=== PATIENT | female | born 1980 ===

== ENCOUNTER 2016-10-15 22:54 | Inpatient (IN) | payer SELFPAY ==
[2016-10-15 22:54] VITALS: BMI 37.6
[2016-10-15] MEDS ORDERED: Magnesium Citrate Oral SOL (300 ml) PO ONE (23:55)
[2016-10-15] MEDS ORDERED: Sodium Chloride 0.9% 1,000 ML IV STA (23:55)
--- NOTE | 2016-10-15 23:56 | ED PDOC ---
HPI: Abdomen Time Seen by Provider: 10/15/16 23:51 Chief Complaint (Nursing): Abdominal Pain Chief Complaint (Provider): Constipation History Per: Patient Additional Complaint(s): 36 yo female, PMH of Lupus and Autoimmune Hepatitis, presents to ED with complaints of abdominal pain and distention, constipation x 5 days now and 2 episodes of non bloody, non billious vomiting as of today. Pt reports that she tried using OTC Laxatives at home without any relief. Past Medical History Reviewed: Nursing Documentation, Vital Signs Vital Signs: Last Vital Signs Temp 98.1 F 10/16/16 04:52 Pulse 82 10/16/16 04:52 Resp 16 10/16/16 04:52 BP 130/70 10/16/16 04:52 Pulse Ox 100 10/16/16 04:52 - Medical History PMH: Anemia - Surgical History Surgical History: No Surg Hx - Family History Family History: States: Unknown Family Hx - Living Arrangements Living Arrangements: With Family - Social History Current smoker - smoking cessation education provided: No Alcohol: None Drugs: Denies - Home Medications Home Medications: Ambulatory Orders Medication Instructions Recorded Hydroxychloroquine Sulfate 200 mg PO BID 10/16/16 [Plaquenil] methylPREDNISolone [Medrol] 4 mg PO DAILY 10/16/16 - Allergies Allergies/Adverse Reactions: Allergies Allergy/AdvReac Type Severity Reaction Status Date / Time No Known Allergies Allergy Verified 06/02/16 03:42 Review of Systems ROS Statement: Except As Marked, All Systems Reviewed And Found Negative Gastrointestinal: Positive for: Vomiting, Abdominal Pain, Constipation Physical Exam - Reviewed Nursing Documentation Reviewed: Yes Vital Signs Reviewed: Yes - Physical Exam Appears: Positive for: Non-toxic, No Acute Distress, Uncomfortable Head Exam: Positive for: ATRAUMATIC, NORMAL INSPECTION, NORMOCEPHALIC Skin: Positive for: Normal Color, Warm, DRY Eye Exam: Positive for: EOMI, Normal appearance, PERRL ENT: Positive for: Normal ENT Inspection Neck: Positive for: Normal, Painless ROM Cardiovascular/Chest: Positive for: Regular Rate, Rhythm Respiratory: Positive for: CNT, Normal Breath Sounds Gastrointestinal/Abdominal: Positive for: Bowel Sounds, Soft, Tenderness, Distended Back: Positive for: Normal Inspection Extremity: Positive for: Normal ROM Neurologic/Psych: Positive for: Alert, Oriented - Laboratory Results Result Diagrams: 10/15/16 23:59 10/15/16 23:59 - ECG O2 Sat by Pulse Oximetry: 98 Medical Decision Making Medical Decision Making: IV access established and treatment initiated with IVF< Mag Citrate, Fleet Enema and Zofran on er-eval, pt vomited Mag up. Declining enema Pt reports pain remains severe. Medicated with Morphine IV CT IMPRESSION: Large intestine packed with stool, upper normal in caliber, with suspicion for a focal stricture in the pelvis which may be neoplastic or related to other pathology, with chronic inflammatory bowel disease to be excluded.. Large hiatus hernia with a large amount of debris. Ascites favored to be related to the bowel pathology although that is not definitive on this study. No evidence of acute small bowel obstruction. Right hydronephrosis with question punctate right UVJ stone. As is true for all female patients of reproductive age, correlation with beta hCG and consideration of gynecologic causes of symptoms is recommended. Case discussed with ED MD, Dr. Kirby, who agreed with admission at this time. Family Practice resident contacted and case discussed. Arrangements made for admission Disposition - Clinical Impression Clinical Impression: Abdominal pain, Constipation - Patient ED Disposition Is Patient to be Admitted: Yes - Disposition Disposition Time: 05:01 Condition: STABLE
[2016-10-16] MEDS ORDERED: Magnesium Citrate Oral SOL (300 ml) ONE (00:13)
[2016-10-16 00:21] LABS: BASO # 0.2 K/uL (0.0-0.2); BASO % 1.3 % (0.0-2.0); EOS % 0.2 % (0.0-4.0); HEMOGLOBIN 11.2 g/dL (12.0-16.0); LYMPH # 1.6 K/uL (1.0-4.3); LYMPH % 11.8 % (20.0-40.0); MEAN CELL VOLUME 87.9 fl (81.0-99.0); MONO # 0.6 K/uL (0.0-0.8); MONO % 4.7 % (0.0-10.0); NEUT # 10.8 K/uL (1.8-7.0); RBC 3.85 Mil/uL (3.80-5.20); RED CELL DISTRIBUTION WIDTH 13.8 % (11.5-14.5); WHITE BLOOD COUNT 13.2 K/uL (4.8-10.8)
[2016-10-16 00:35] LABS: ALB/GLOB RATIO 0.9 (1.0-2.1); ALBUMIN 4.3 g/dL (3.5-5.0); ALT/SGPT 36 U/L (9-52); AST/SGOT 37 U/L (14-36); BLOOD UREA NITROGEN 14 mg/dl (7-17); CALCIUM 9.6 mg/dL (8.4-10.2); GFR AFRICAN-AMERICAN > 60; GFR NON-AFRICAN AMERICAN > 60
[2016-10-16 00:39] LABS: SQUAMOUS EPITHIAL 5 /hpf (0-5); URINE BACTERIA RARE (<OCC); URINE BILIRUBIN SMALL (NEGATIVE); URINE BLOOD SMALL (NEGATIVE); URINE CLARITY SLIGHTY-CLOUDY (Clear); URINE COLOR AMBER (YELLOW); URINE GLUCOSE (UA) NEG (Normal); URINE LEUKOCYTE ESTERASE NEG Leu/uL (Negative); URINE NITRATE NEGATIVE (NEGATIVE); URINE PROTEIN 30 mg/dL (NEGATIVE)
[2016-10-16] MEDS ORDERED: Sodium Chloride 0.9% 50 ML IV ONE (03:10)
[2016-10-16] MEDS ORDERED: Iohexol 300 100 ML IJ ONE (03:10)
--- NOTE | 2016-10-16 04:28 | CT ---
EXAM: CT Abdomen and Pelvis With Intravenous Contrast CLINICAL HISTORY: 36 years old, female; Pain; Abdominal pain; Generalized; Additional info: R/O sbo TECHNIQUE: Axial computed tomography images of the abdomen and pelvis with intravenous contrast. This CT exam was performed using one or more of the following dose reduction techniques: automated exposure control, adjustment of the mA and/or kV according to patient size, and/or use of iterative reconstruction technique. Coronal and sagittal reformatted images were created and reviewed. CONTRAST: 95 mL of [id number] administered intravenously. EXAM DATE/TIME: Exam ordered 10/16/2016 12:42 AM COMPARISON: US - IR NEEDLE BX LIVER PERC 06/12/2015 10:56:50 AM FINDINGS: Lower thorax: There is a large hiatus hernia containing a large amount of debris above the diaphragm. Lung bases with bilateral atelectatic and fibrotic changes. ABDOMEN: Liver: Unremarkable. No mass. Gallbladder and bile ducts: Unremarkable. No calcified stones. No ductal dilation. Pancreas: Unremarkable. No mass. No ductal dilation. Spleen: Unremarkable. No splenomegaly. Adrenals: Unremarkable. No mass. Kidneys and ureters: Kidneys mild prominence of the bilateral collecting systems, possible mild periureteral stranding on the right which could be a sign of recent passage of a stone, series 3 image 161 cannot exclude a punctate calculus at the right UVJ. Stomach and bowel: There is fluid content in the cecum with a large intestine otherwise essentially packed with fecal material, noting focal narrowing in the pelvis as seen series 601 coronal image 52 with dilatation both proximal and distal to that level and with investigation for neoplasm or other cause of stricture recommended. There is fluid content in normal caliber small bowel with no findings to suggest small bowel obstruction, noting that fluid content is nonspecific but sometimes associated with enteritis. Appendix: No findings to suggest acute appendicitis. PELVIS: Bladder: Unremarkable. No mass. Reproductive: Unremarkable as visualized. ABDOMEN and PELVIS: Intraperitoneal space: There is a small amount of pelvic ascites favored to be related to the bowel findings. No free air. Bones/joints: No acute fracture. No dislocation. Soft tissues: Unremarkable. Vasculature: Incidental retroaortic left renal vein. No abdominal aortic aneurysm. Lymph nodes: Upper normal bilateral external iliac nodes, left para-aortic nodes. Other findings: No previous CTs for comparison. IMPRESSION: Large intestine packed with stool, upper normal in caliber, with suspicion for a focal stricture in the pelvis which may be neoplastic or related to other pathology, with chronic inflammatory bowel disease to be excluded.. Large hiatus hernia with a large amount of debris. Ascites favored to be related to the bowel pathology although that is not definitive on this study. No evidence of acute small bowel obstruction. Right hydronephrosis with question punctate right UVJ stone. As is true for all female patients of reproductive age, correlation with beta hCG and consideration of gynecologic causes of symptoms is recommended.
--- NOTE | 2016-10-16 05:40 | CP.PCM.HP ---
History of Present Illness - History of Present Illness History of Present Illness: 35 yo F w PMHx of Lupus is admitted to [facility] for nausea, vomiting x3 overnight, and significant abdominal pain associated with constipation for one week. She describes the pain as intense cramping located more on the Left side of her abdomen, but can also extend to epigastric region. When she is able to pass stool, she states it is very firm, but of normal color and without any blood. Pt states her chronic constipation began roughly three months ago, for which she was told by GI to change her diet to include more fiberous food and shed excess weight. Her diet now consists of whole grains, fruits, and vegetables, in addition to taking benefiber. Otherwise, pt denies fevers/chills, diarrhea, chest pain, palpitations, SOB, dyspnea, cough, hematuria, dysuria, or other myalgias. 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 FHx: DM, Arthritis SHx: socially minimal etoh, denies cigarettes since Lupus Dx, denies illicit drugs ED Course: -CBC -CMP -Upreg: negative -NS 1L 125mL/hr -XR Abd -Mag Citrate; pt vomited -Reglan -Zofran -Declined enema Present on Admission - Present on Admission Any Indicators Present on Admission: No History of DVT/PE: No History of Uncontrolled Diabetes: No Urinary Catheter: No Decubitus Ulcer Present: No Review of Systems - Review of Systems All systems: reviewed and no additional remarkable complaints except (see HPI) Past Patient History - Past Medical History & Family History Past Medical History?: Yes - Past Social History Alcohol: None Drugs: Denies - NEUROLOGICAL Hx Vertigo: Yes (8 years ago) - ENDOCRINE/METABOLIC Hx Systemic Lupus Erythematosus: Yes - HEMATOLOGICAL/ONCOLOGICAL Hx Anemia: Yes - PSYCHIATRIC Hx Substance Use: No - ANESTHESIA Hx Anesthesia: No Hx Anesthesia Reactions: No Hx Malignant Hyperthermia: No Meds Allergies/Adverse Reactions: Allergies Allergy/AdvReac Type Severity Reaction Status Date / Time No Known Allergies Allergy Verified 06/02/16 03:42 Physical Exam - Constitutional Appears: In Acute Distress, Older Than Stated Age - Head Exam Head Exam: ATRAUMATIC, NORMOCEPHALIC - Eye Exam Eye Exam: EOMI Pupil Exam: PERRL - ENT Exam ENT Exam: Mucous Membranes Dry - Neck Exam Neck exam: Positive for: Full Rom - Respiratory Exam Respiratory Exam: Clear to Auscultation Bilateral, NORMAL BREATHING PATTERN. absent: Wheezes - Cardiovascular Exam Cardiovascular Exam: REGULAR RHYTHM, +S1, +S2 - GI/Abdominal Exam GI & Abdominal Exam: Distended, Firm, Guarding (voluntarily), Normal Bowel Sounds, Tenderness (very tender RLQ & RUQ, moderately tender epigastric) - Extremities Exam Extremities exam: Negative for: calf tenderness, pedal edema - Back Exam Back exam: NORMAL INSPECTION. absent: CVA tenderness (L), CVA tenderness (R) - Neurological Exam Neurological exam: Alert, CN II-XII Intact, Oriented x3 - Psychiatric Exam Psychiatric exam: Normal Affect, Normal Mood - Skin Skin Exam: Dry, Intact, Warm Additional comments: devi hue Results - Vital Signs Recent Vital Signs: Last Vital Signs Temp 98.1 F 10/16/16 04:52 Pulse 82 10/16/16 04:52 Resp 16 10/16/16 04:52 BP 130/70 10/16/16 04:52 Pulse Ox 98 10/16/16 05:01 - Labs Result Diagrams: 10/15/16 23:59 10/15/16 23:59 Labs: Laboratory Results - last 24 hr 10/15/16 10/15/16 10/16/16 23:59 23:59 00:21 WBC 13.2 H D RBC 3.85 Hgb 11.2 L Hct 33.9 L MCV 87.9 MCH 29.0 MCHC 33.0 RDW 13.8 Plt Count 319 MPV 9.0 Neut % (Auto) 82.0 H Lymph % (Auto) 11.8 L Collin % (Auto) 4.7 Eos % (Auto) 0.2 Baso % (Auto) 1.3 Neut # 10.8 H Lymph # 1.6 Collin # 0.6 Eos # 0.0 Baso # 0.2 Sodium 140 Potassium 4.4 Chloride 107 Carbon Dioxide 24 Anion Gap 14 BUN 14 Creatinine 0.6 L Est GFR ( Amer) > 60 Est GFR (Non-Af Amer) > 60 Random Glucose 110 H Calcium 9.6 Total Bilirubin 0.3 AST 37 H ALT 36 Alkaline Phosphatase 72 Total Protein 9.0 H Albumin 4.3 Globulin 4.7 H Albumin/Globulin Ratio 0.9 L Urine Color Marlene Urine Clarity Slighty-cloudy Urine pH 5.0 Ur Specific Hilham 1.032 H Urine Protein 30 Urine Glucose (UA) Neg Urine Ketones 20 Urine Blood Small Urine Nitrate Negative Urine Bilirubin Small Urine Urobilinogen 4.0 H Ur Leukocyte Esterase Neg Urine RBC (Auto) 3 Urine Microscopic WBC 2 Ur Squamous Epith Cells 5 Urine Bacteria Rare Assessment & Plan - Assessment and Plan (Free Text) Plan: 35 yo F w PMHx of Lupus is admitted to [facility] for nausea, vomiting x3 overnight, and significant abdominal pain associated with constipation for one week 1) Abdominal Pain w week-long constipation -Has been unable to move her bowels for previous week -Progressively worsening for previous few months -WBC 13.2; likely due to daily Medrol administration -AST/ALT: 37/36 -CT A/P: ---Large intestine packed with stool, upper normal in caliber, with suspicion for a focal stricture in the pelvis which may be neoplastic or related to other pathology, with chronic inflammatory bowel disease to be excluded. ---Large hiatus hernia with a large amount of debris. Ascites favored to be related to the bowel pathology although that is not definitive on this study. ---No evidence of acute small bowel obstruction. ---Right hydronephrosis with question punctate right UVJ stone. -NPO -Zofran 4mg IVP Q4H PRN -D5 1/2NS @ 150mL/hr -f/u GI Consult 2) Lupus -Plaquenil 200mg BID -Medrol 4mg Daily 3) Right Hydronephrosis -As seen on CT -Zero CVA tenderness -Elevated WBC likely due to daily Medrol administration -Consider Nephro Consult 4) DVT Prophylaxis -SCDs for now -Lovenox 40mg SC HS, unless necessary to be stopped due to intervention
[2016-10-16] MEDS: Dextrose 5%/0.45% NS 1,000 ML IV SCH ×4 (09:22→20:18)
[2016-10-16] MEDS: Morphine 4 MG/ML VIAL IVP PRN ×2 (11:35→18:13)
[2016-10-16] MEDS ORDERED: Chlorhexidine Gluconate 1 APPL/PKT TP ONE (13:50)
--- NOTE | 2016-10-16 14:09 | RAD ---
HISTORY: constipation COMPARISON: No prior. FINDINGS: BOWEL: Current study reveals a very large amount of stool throughout the colon consistent with fecal retention/ constipation and/or early fecal impaction. No evidence of acute mechanical bowel obstruction BONES: Normal. OTHER FINDINGS: None. IMPRESSION: Findings consistent with significant fecal retention/ constipation and/or early fecal impaction. No evidence of acute mechanical bowel obstruction
--- NOTE | 2016-10-16 14:45 | CP.PCM.CON ---
History of Present Illness - History of Present Illness History of Present Illness: 36 y.o. female comes to the hospital c/o constipation for the last 1 week. Patient states that prior to the last 3 months she never had any constipation but now it is getting worse. Patient went to her PMD and was prescribed laxatives with some relief. States that occasionally gets some abdominal discomforts. No nausea or vomiting, no fever or chills. No urinary symptoms. Never had a colonoscopy. Review of Systems - Constitutional Constitutional: As Per HPI - EENT Eyes: Other (unremarkable) Ears: Other (unremarkable) Nose/Mouth/Throat: Other (unremarkable) - Breasts Breasts: Other (unremarkable) - Cardiovascular Cardiovascular: Other (unremarkable) - Respiratory Respiratory: Other (unremarkable) - Gastrointestinal Gastrointestinal: As Per HPI - Genitourinary Genitourinary: As Per HPI - Menstruation Menstruation: Currently Menstual - Musculoskeletal Musculoskeletal: Other (unremarkable) - Integumentary Integumentary: Other (unremarkable) - Neurological Neurological: Other (unremarkable) - Psychiatric Psychiatric: Other (unremarkable) - Endocrine Endocrine: Other (unremarkable) - Hematologic/Lymphatic Hematologic: Other (unremarkable) Past Patient History - Past Medical History & Family History Past Medical History?: Yes - Past Social History Smoking Status: Former Smoker - NEUROLOGICAL Hx Vertigo: Yes (8 years ago) - ENDOCRINE/METABOLIC Hx Systemic Lupus Erythematosus: Yes - HEMATOLOGICAL/ONCOLOGICAL Hx Anemia: Yes - MUSCULOSKELETAL/RHEUMATOLOGICAL Hx Falls: No - PSYCHIATRIC Hx Substance Use: No - SURGICAL HISTORY Hx Surgeries: No - ANESTHESIA Hx Anesthesia: No Hx Anesthesia Reactions: No Hx Malignant Hyperthermia: No Meds Allergies/Adverse Reactions: Allergies Allergy/AdvReac Type Severity Reaction Status Date / Time No Known Allergies Allergy Verified 06/02/16 03:42 - Medications Medications: Current Medications Enoxaparin Sodium (Lovenox) 40 mg SC HS ROSIO PRN Reason: Protocol Famotidine (Pepcid) 20 mg IVP Q12 [facility] Last Admin: 10/16/16 09:26 Dose: 20 mg Hydroxychloroquine Sulfate (Plaquenil) 200 mg PO BID [facility] Last Admin: 10/16/16 09:08 Dose: 200 mg Dextrose/Sodium Chloride (Dextrose 5%/0.45% Ns 1000 Ml) 1,000 mls @ 150 mls/hr IV .Q6H40M [facility] Stop: 10/17/16 05:56 Last Admin: 10/16/16 14:11 Dose: Not Given Methylprednisolone (Medrol) 4 mg PO DAILY [facility] Last Admin: 10/16/16 09:27 Dose: 4 mg Morphine Sulfate (Morphine) 2 mg IVP Q4 PRN PRN Reason: Pain, moderate (4-7) Last Admin: 10/16/16 11:35 Dose: 2 mg Ondansetron HCl (Zofran Inj) 4 mg IVP Q6 PRN PRN Reason: Nausea/Vomiting Last Admin: 10/16/16 09:07 Dose: 4 mg Physical Exam - Constitutional Appears: Well, Non-toxic, No Acute Distress - Head Exam Head Exam: ATRAUMATIC, NORMAL INSPECTION, NORMOCEPHALIC - Eye Exam Eye Exam: EOMI, Normal appearance, PERRL Pupil Exam: NORMAL ACCOMODATION, PERRL - ENT Exam ENT Exam: Mucous Membranes Moist, Normal Exam - Neck Exam Neck exam: Positive for: Full Rom, Normal Inspection - Respiratory Exam Respiratory Exam: Clear to Auscultation Bilateral, NORMAL BREATHING PATTERN - Cardiovascular Exam Cardiovascular Exam: REGULAR RHYTHM, +S1, +S2 - GI/Abdominal Exam GI & Abdominal Exam: Normal Bowel Sounds, Soft Additional comments: mildly tender to palpation, Very mildly distended, no rebound, no guarding - Rectal Exam Additional comments: good spincter tone, some brown stool in the vault - Extremities Exam Extremities exam: Positive for: full ROM, normal inspection - Back Exam Back exam: NORMAL INSPECTION - Neurological Exam Neurological exam: Alert, CN II-XII Intact, Oriented x3 - Psychiatric Exam Psychiatric exam: Normal Affect, Normal Mood - Skin Skin Exam: Dry, Intact, Normal Color, Warm Results - Vital Signs Recent Vital Signs: Last Vital Signs Temp 98.2 F 10/16/16 07:31 Pulse 70 10/16/16 07:31 Resp 18 10/16/16 07:31 BP 108/68 10/16/16 07:31 Pulse Ox 98 10/16/16 07:31 - Labs Result Diagrams: 10/15/16 23:59 10/15/16 23:59 - Imaging and Cardiology CT scan - abdomen Status: Image reviewed by me, Report reviewed by me Assessment & Plan - Assessment and Plan (Free Text) Assessment: 36 y.o. female with constipation and possible stricture in the colon at the level of the pelvis on the CT scan Plan: - Keep NPO - IV fluids - GI consultation for colonoscopy - Repeat labs in am - No general surgery intervention at present time - Will follow
[2016-10-16] MEDS: Enoxaparin 40 mg Syringe SC SCH (22:10)
--- NOTE | 2016-10-16 23:11 | CP.PCM.CON ---
History of Present Illness - History of Present Illness History of Present Illness: 33 yo female admitted with severe right sided abdominal pain since Tuesday. Was much worst today and came to ER. No vomiting or diarrhea. No previous episodes Past Patient History - Past Medical History & Family History Past Medical History?: Yes - Past Social History Smoking Status: Former Smoker - NEUROLOGICAL Hx Vertigo: Yes (8 years ago) - ENDOCRINE/METABOLIC Hx Systemic Lupus Erythematosus: Yes - HEMATOLOGICAL/ONCOLOGICAL Hx Anemia: Yes - MUSCULOSKELETAL/RHEUMATOLOGICAL Hx Falls: No - PSYCHIATRIC Hx Substance Use: No - SURGICAL HISTORY Hx Surgeries: No - ANESTHESIA Hx Anesthesia: No Hx Anesthesia Reactions: No Hx Malignant Hyperthermia: No Meds Allergies/Adverse Reactions: Allergies Allergy/AdvReac Type Severity Reaction Status Date / Time No Known Allergies Allergy Verified 06/02/16 03:42 - Medications Medications: Current Medications Enoxaparin Sodium (Lovenox) 40 mg SC HS [facility] PRN Reason: Protocol Last Admin: 10/16/16 22:10 Dose: 40 mg Famotidine (Pepcid) 20 mg IVP Q12 [facility] Last Admin: 10/16/16 20:18 Dose: 20 mg Hydroxychloroquine Sulfate (Plaquenil) 200 mg PO BID [facility] Last Admin: 10/16/16 18:09 Dose: 200 mg Dextrose/Sodium Chloride (Dextrose 5%/0.45% Ns 1000 Ml) 1,000 mls @ 150 mls/hr IV .Q6H40M [facility] Stop: 10/17/16 05:56 Last Admin: 10/16/16 20:18 Dose: 150 mls/hr Methylprednisolone (Medrol) 4 mg PO DAILY [facility] Last Admin: 10/16/16 09:27 Dose: 4 mg Mineral Oil (Fleet Mineral Oil Enema) 135 ml MA ONCE ONE Stop: 10/16/16 23:41 Morphine Sulfate (Morphine) 2 mg IVP Q4 PRN PRN Reason: Pain, moderate (4-7) Last Admin: 10/16/16 18:13 Dose: 2 mg Ondansetron HCl (Zofran Inj) 4 mg IVP Q6 PRN PRN Reason: Nausea/Vomiting Last Admin: 10/16/16 09:07 Dose: 4 mg Results - Vital Signs Recent Vital Signs: Last Vital Signs Temp 99 F 10/16/16 17:02 Pulse 87 10/16/16 17:02 Resp 20 10/16/16 17:02 BP 103/64 10/16/16 17:02 Pulse Ox 99 10/16/16 17:02 - Labs Result Diagrams: 10/15/16 23:59 10/15/16 23:59
--- NOTE | 2016-10-16 23:23 | CP.PCM.CON ---
History of Present Illness - History of Present Illness History of Present Illness: 36 yo female with h/o lupus presenting with nausea, vomiting and aaaaaabdominal distention> She mack been having difficulty passing stool and when she does it is very hard. Her constipation has been present for 3 months. Review of Systems - Constitutional Constitutional: absent: Chills - EENT Eyes: absent: Blurred Vision Ears: absent: Decreased Hearing Nose/Mouth/Throat: absent: Epistaxis - Cardiovascular Cardiovascular: absent: Chest Pain - Respiratory Respiratory: absent: Cough - Gastrointestinal Gastrointestinal: As Per HPI Past Patient History - Past Medical History & Family History Past Medical History?: Yes - Past Social History Smoking Status: Former Smoker - NEUROLOGICAL Hx Vertigo: Yes (8 years ago) - ENDOCRINE/METABOLIC Hx Systemic Lupus Erythematosus: Yes - HEMATOLOGICAL/ONCOLOGICAL Hx Anemia: Yes - MUSCULOSKELETAL/RHEUMATOLOGICAL Hx Falls: No - PSYCHIATRIC Hx Substance Use: No - SURGICAL HISTORY Hx Surgeries: No - ANESTHESIA Hx Anesthesia: No Hx Anesthesia Reactions: No Hx Malignant Hyperthermia: No Meds Allergies/Adverse Reactions: Allergies Allergy/AdvReac Type Severity Reaction Status Date / Time No Known Allergies Allergy Verified 06/02/16 03:42 - Medications Medications: Current Medications Enoxaparin Sodium (Lovenox) 40 mg SC HS ROSIO PRN Reason: Protocol Last Admin: 10/16/16 22:10 Dose: 40 mg Famotidine (Pepcid) 20 mg IVP Q12 [facility] Last Admin: 10/16/16 20:18 Dose: 20 mg Hydroxychloroquine Sulfate (Plaquenil) 200 mg PO BID [facility] Last Admin: 10/16/16 18:09 Dose: 200 mg Dextrose/Sodium Chloride (Dextrose 5%/0.45% Ns 1000 Ml) 1,000 mls @ 150 mls/hr IV .Q6H40M [facility] Stop: 10/17/16 05:56 Last Admin: 10/16/16 20:18 Dose: 150 mls/hr Methylprednisolone (Medrol) 4 mg PO DAILY [facility] Last Admin: 10/16/16 09:27 Dose: 4 mg Mineral Oil (Fleet Mineral Oil Enema) 135 ml MO ONCE ONE Stop: 10/16/16 23:41 Morphine Sulfate (Morphine) 2 mg IVP Q4 PRN PRN Reason: Pain, moderate (4-7) Last Admin: 10/16/16 18:13 Dose: 2 mg Ondansetron HCl (Zofran Inj) 4 mg IVP Q6 PRN PRN Reason: Nausea/Vomiting Last Admin: 10/16/16 09:07 Dose: 4 mg Physical Exam - Head Exam Head Exam: ATRAUMATIC - Eye Exam Eye Exam: Normal appearance - ENT Exam ENT Exam: Mucous Membranes Moist - Respiratory Exam Respiratory Exam: Clear to Auscultation Bilateral - Cardiovascular Exam Cardiovascular Exam: REGULAR RHYTHM, +S1, +S2 - GI/Abdominal Exam GI & Abdominal Exam: Distended, Firm, Normal Bowel Sounds Results - Vital Signs Recent Vital Signs: Last Vital Signs Temp 99 F 10/16/16 17:02 Pulse 87 10/16/16 17:02 Resp 20 10/16/16 17:02 BP 103/64 10/16/16 17:02 Pulse Ox 99 10/16/16 17:02 - Labs Result Diagrams: 10/15/16 23:59 10/15/16 23:59 - Imaging and Cardiology CT scan - abdomen Status: Report reviewed by me Assessment & Plan (1) Abdominal pain Assessment and Plan: Colon is packed with stool and there is suspicion for focal stricture in pelvis. Will give suppository and enema tonight. If distention persists possibly a Barium enema on Tuesday. Status: Acute
[2016-10-16] MEDS ORDERED: Mineral Oil Enema 135 ml PR ONE (23:40)
[2016-10-17] MEDS: Dextrose 5%/0.45% NS 1,000 ML IV SCH (02:01)
--- NOTE | 2016-10-17 10:09 | CP.PCM.PN ---
Subjective - Date & Time of Evaluation Date of Evaluation: 10/17/16 Time of Evaluation: 10:07 - Subjective Subjective: Still distended Small bowel movement yesterday Objective - Vital Signs/Intake and Output Vital Signs (last 24 hours): Temp Pulse Resp BP Pulse Ox 98.3 F 102 H 18 102/66 95 10/17/16 07:47 10/17/16 07:47 10/17/16 07:47 10/17/16 07:47 10/17/16 07:47 - Medications Medications: Current Medications Enoxaparin Sodium (Lovenox) 40 mg SC HS [facility] PRN Reason: Protocol Last Admin: 10/16/16 22:10 Dose: 40 mg Famotidine (Pepcid) 20 mg IVP Q12 [facility] Last Admin: 10/16/16 20:18 Dose: 20 mg Hydroxychloroquine Sulfate (Plaquenil) 200 mg PO BID [facility] Last Admin: 10/17/16 09:34 Dose: 200 mg Methylprednisolone (Medrol) 4 mg PO DAILY [facility] Last Admin: 10/17/16 09:34 Dose: 4 mg Morphine Sulfate (Morphine) 2 mg IVP Q4 PRN PRN Reason: Pain, moderate (4-7) Last Admin: 10/16/16 18:13 Dose: 2 mg Ondansetron HCl (Zofran Inj) 4 mg IVP Q6 PRN PRN Reason: Nausea/Vomiting Last Admin: 10/16/16 09:07 Dose: 4 mg Sodium Phosphate (Fleet Enema) 135 ml [place] ONCE PRN PRN Reason: Constipation - Head Exam Head Exam: ATRAUMATIC - Eye Exam Eye Exam: Normal appearance Pupil Exam: PERRL - ENT Exam ENT Exam: Normal Exam - Respiratory Exam Respiratory Exam: Clear to Ausculation Bilateral - Cardiovascular Exam Cardiovascular Exam: REGULAR RHYTHM - GI/Abdominal Exam GI & Abdominal Exam: Distended, Soft, Normal Bowel Sounds. absent: Tenderness Assessment and Plan (1) Abdominal pain Assessment & Plan: Abdominal distention . Functional constipation vs partial obstruction. Fleets enema now. If no further improvement today, barium enema tomorrow. Status: Acute
--- NOTE | 2016-10-17 10:15 | CP.PCM.PN ---
<Dav Benites - Last Filed: 10/17/16 10:12> Subjective - Date & Time of Evaluation Date of Evaluation: 10/17/16 Time of Evaluation: 10:12 - Subjective Subjective: Surgery Progress note. Dr. Bruner Pt seen and examined at bedside. Patient resting comfortably. Denies any N/V. States that she does have increased bloating sensation. Received Enema and dulcolax yesterday with small BM this morning. No F/C. No new complaints Objective - Vital Signs/Intake and Output Vital Signs (last 24 hours): Temp Pulse Resp BP Pulse Ox 98.3 F 102 H 18 102/66 95 10/17/16 07:47 10/17/16 07:47 10/17/16 07:47 10/17/16 07:47 10/17/16 07:47 - Medications Medications: Current Medications Enoxaparin Sodium (Lovenox) 40 mg SC HS [facility] PRN Reason: Protocol Last Admin: 10/16/16 22:10 Dose: 40 mg Famotidine (Pepcid) 20 mg IVP Q12 [facility] Last Admin: 10/16/16 20:18 Dose: 20 mg Hydroxychloroquine Sulfate (Plaquenil) 200 mg PO BID [facility] Last Admin: 10/17/16 09:34 Dose: 200 mg Methylprednisolone (Medrol) 4 mg PO DAILY [facility] Last Admin: 10/17/16 09:34 Dose: 4 mg Morphine Sulfate (Morphine) 2 mg IVP Q4 PRN PRN Reason: Pain, moderate (4-7) Last Admin: 10/16/16 18:13 Dose: 2 mg Ondansetron HCl (Zofran Inj) 4 mg IVP Q6 PRN PRN Reason: Nausea/Vomiting Last Admin: 10/16/16 09:07 Dose: 4 mg Sodium Phosphate (Fleet Enema) 135 ml [place] ONCE PRN PRN Reason: Constipation - Constitutional Appears: Well, No Acute Distress - Head Exam Head Exam: ATRAUMATIC, NORMAL INSPECTION, NORMOCEPHALIC - Eye Exam Eye Exam: EOMI - ENT Exam ENT Exam: Mucous Membranes Moist - Respiratory Exam Respiratory Exam: NORMAL BREATHING PATTERN - GI/Abdominal Exam GI & Abdominal Exam: Distended (moderately distended), Soft, Tenderness (Mild diffuse tender to palpation). absent: Guarding, Rebound - Extremities Exam Extremities Exam: Normal Inspection. absent: Calf Tenderness - Neurological Exam Neurological Exam: Alert, Awake, Oriented x3 - Psychiatric Exam Psychiatric exam: Normal Affect, Normal Mood - Skin Skin Exam: Dry, Intact, Normal Color, Warm Assessment and Plan - Assessment and Plan (Free Text) Assessment: 36yo F with severe constipation and possible colonic stricture - No plans for any acute surgical intervention at this time - Maintain NPO - Continue Bowel regimen - f/u GI recs - We will continue to follow patient's clinical course further recs as per Dr. Zohreh Benites PGY1 <Noel Bruner - Last Filed: 10/17/16 16:07> Subjective - Date & Time of Evaluation Time of Evaluation: 15:40 - Subjective Subjective: Patient was seen and examined at the bedside. Agree with resident's note above. States that had 5 bowel movements today, feels much better and less distended, no nausea or vomiting. Objective - Vital Signs/Intake and Output Vital Signs (last 24 hours): Temp Pulse Resp BP Pulse Ox 98.3 F 102 H 18 102/66 95 10/17/16 07:47 10/17/16 07:47 10/17/16 07:47 10/17/16 07:47 10/17/16 07:47 - Medications Medications: Current Medications Acetaminophen (Tylenol 650 Mg Supp) 650 mg [place] Q6 PRN PRN Reason: Fever >100.4 F Enoxaparin Sodium (Lovenox) 40 mg SC HS [facility] PRN Reason: Protocol Last Admin: 10/16/16 22:10 Dose: 40 mg Famotidine (Pepcid) 20 mg IVP DAILY [facility] Hydroxychloroquine Sulfate (Plaquenil) 200 mg PO BID [facility] Last Admin: 10/17/16 09:34 Dose: 200 mg Methylprednisolone (Medrol) 4 mg PO DAILY [facility] Last Admin: 10/17/16 09:34 Dose: 4 mg Morphine Sulfate (Morphine) 2 mg IVP Q4 PRN PRN Reason: Pain, moderate (4-7) Last Admin: 10/16/16 18:13 Dose: 2 mg Ondansetron HCl (Zofran Inj) 4 mg IVP Q6 PRN PRN Reason: Nausea/Vomiting Last Admin: 10/16/16 09:07 Dose: 4 mg Sodium Phosphate (Fleet Enema) 135 ml [place] ONCE PRN PRN Reason: Constipation - GI/Abdominal Exam GI & Abdominal Exam: Distended, Soft, Normal Bowel Sounds Additional comments: soft, NT, ND, BS+, no rebound, no guarding Assessment and Plan - Assessment and Plan (Free Text) Plan: - Keep NPO for now - IV fluids - Continue with enemas - out of bed and ambulate - GI follow up - Repeat labs in am - Will follow
--- NOTE | 2016-10-17 10:26 | CP.PCM.PN ---
Subjective - Date & Time of Evaluation Date of Evaluation: 10/17/16 Time of Evaluation: 10:19 - Subjective Subjective: Pt seen and examined, was walking around. Denies any N/V but states that she does have increased bloating sensation. Received Enema and dulcolax yesterday with small BM this morning. Tm 100.3 last night- toradol was given, Afebrile since then. No new complaints. Objective - Vital Signs/Intake and Output Vital Signs (last 24 hours): Temp Pulse Resp BP Pulse Ox 98.3 F 102 H 18 102/66 95 10/17/16 07:47 10/17/16 07:47 10/17/16 07:47 10/17/16 07:47 10/17/16 07:47 - Medications Medications: Current Medications Enoxaparin Sodium (Lovenox) 40 mg SC HS [facility] PRN Reason: Protocol Last Admin: 10/16/16 22:10 Dose: 40 mg Famotidine (Pepcid) 20 mg IVP Q12 [facility] Last Admin: 10/16/16 20:18 Dose: 20 mg Hydroxychloroquine Sulfate (Plaquenil) 200 mg PO BID [facility] Last Admin: 10/17/16 09:34 Dose: 200 mg Methylprednisolone (Medrol) 4 mg PO DAILY [facility] Last Admin: 10/17/16 09:34 Dose: 4 mg Morphine Sulfate (Morphine) 2 mg IVP Q4 PRN PRN Reason: Pain, moderate (4-7) Last Admin: 10/16/16 18:13 Dose: 2 mg Ondansetron HCl (Zofran Inj) 4 mg IVP Q6 PRN PRN Reason: Nausea/Vomiting Last Admin: 10/16/16 09:07 Dose: 4 mg Sodium Phosphate (Fleet Enema) 135 ml [place] ONCE PRN PRN Reason: Constipation - Constitutional Appears: Well, No Acute Distress - Head Exam Head Exam: ATRAUMATIC, NORMAL INSPECTION, NORMOCEPHALIC - Eye Exam Eye Exam: EOMI, Normal appearance - Neck Exam Neck Exam: Full ROM. absent: Lymphadenopathy - Respiratory Exam Respiratory Exam: Clear to Ausculation Bilateral, NORMAL BREATHING PATTERN. absent: Accessory Muscle Use, Chest Wall Tenderness, Decreased Breath Sounds - Cardiovascular Exam Cardiovascular Exam: REGULAR RHYTHM, +S1, +S2. absent: Bradycardia, Tachycardia , Irregular Rhythm, +S4, Murmur - GI/Abdominal Exam GI & Abdominal Exam: Distended (moderately), Soft, Tenderness (mild diffuse tender to deep palpation), Normal Bowel Sounds. absent: Guarding, Rigid, Hernia - Extremities Exam Extremities Exam: Full ROM, Normal Capillary Refill. absent: Calf Tenderness, Pedal Edema, Tenderness - Back Exam Back Exam: absent: CVA tenderness (L), CVA tenderness (R) - Neurological Exam Neurological Exam: Alert, Awake, CN II-XII Intact, Oriented x3 Neuro motor strength exam: Left Upper Extremity: 5, Right Upper Extremity: 5, Left Lower Extremity: 5, Right Lower Extremity: 5 - Psychiatric Exam Psychiatric exam: Normal Affect, Normal Mood - Skin Skin Exam: Normal Color Assessment and Plan - Assessment and Plan (Free Text) Assessment: 35 yo F w PMHx of Lupus is admitted to [facility] for nausea, vomiting x3 overnight, and significant abdominal pain associated with constipation for one week. Plan: Abdominal Pain w/ constipation for a week -Has been unable to move her bowels for previous week -Progressively worsening for previous few months -WBC 13.2; likely due to daily Medrol 4mg administration -AST/ALT: 37/36 -CT: Large intestine packed with stool, upper normal in caliber, with suspicion for a focal stricture in the pelvis -No evidence of acute small bowel obstruction. -Right hydronephrosis with questionable punctate right UVJ stone. -Surgery, Dr. Bruner, recommendations appreciated -As per surgery, No plans for any acute surgical intervention at this time -Maintain NPO -Continue Bowel regimen -Zofran 4mg IVP Q4H PRN -GI, , Recommendations appreciated -Fleets enema now, if no further improvement today, barium enema tomorrow -Tylenol 650mg [place] Q6 PRN for fever -Simethicone 80 mg PO once today to break up gas bubbles in the gut -Pepcid 20mg IVP daily Lupus -Plaquenil 200mg BID -Medrol 4mg Daily Right Hydronephrosis -As seen on CT -Zero CVA tenderness -Elevated WBC likely due to daily Medrol administration -Consider Nephro Consult DVT Prophylaxis -SCDs for now -Lovenox 40mg SC HS, unless necessary to be stopped due to intervention
[2016-10-17] MEDS ORDERED: Simethicone 80 mg Chewtab PO ONE (12:42)
[2016-10-17] MEDS: Morphine 4 MG/ML VIAL IVP PRN (17:21)
[2016-10-17] MEDS: Enoxaparin 40 mg Syringe SC SCH (22:10)
[2016-10-18 07:10] LABS: BASO % 0.3 % (0.0-2.0); EOS # 0.1 K/uL (0.0-0.7); EOS % 0.8 % (0.0-4.0); HEMOGLOBIN 9.8 g/dL (12.0-16.0); LYMPH # 2.9 K/uL (1.0-4.3); LYMPH % 30.5 % (20.0-40.0); MEAN CELL VOLUME 89.4 fl (81.0-99.0); MEAN CORPUSCULAR HGB CONC 33.5 g/dL (33.0-37.0); MEAN PLATELET VOLUME 9.4 fl (7.2-11.7); MONO # 0.8 K/uL (0.0-0.8); MONO % 8.3 % (0.0-10.0); NEUT # 5.7 K/uL (1.8-7.0); NEUT % 60.1 % (50.0-75.0); NRBC % 0.1 % (0.0-0.0); RBC 3.26 Mil/uL (3.80-5.20); RED CELL DISTRIBUTION WIDTH 13.7 % (11.5-14.5); WHITE BLOOD COUNT 9.5 K/uL (4.8-10.8)
--- NOTE | 2016-10-18 07:52 | CP.PCM.PN ---
Addendum entered and electronically signed by Dav Benites DO 10/18/16 11:40 : Plan: - Patient is cleared for D/C from surgical standpoint if tolerates regular diet - recommend GI f/u for Colonoscopy Original Note: <Dav Benites - Last Filed: 10/18/16 07:45> Subjective - Date & Time of Evaluation Date of Evaluation: 10/18/16 Time of Evaluation: 07:45 - Subjective Subjective: Surgery Progress note. Dr. Bruner Pt seen and examined at bedside. Patient states that she has had multiple large bowel movements since I last examined her. She states that she feels much better. She denies any N/V/D. Abd pain improved. No F/C. No Headaches. She states that she must go home today as there is a family emergency and she would like to discuss this with her primary doctors today. Objective - Vital Signs/Intake and Output Vital Signs (last 24 hours): Temp Pulse Resp BP Pulse Ox 98.8 F 78 19 103/58 L 100 10/18/16 00:00 10/18/16 00:00 10/18/16 00:00 10/18/16 00:00 10/18/16 00:00 - Medications Medications: Current Medications Acetaminophen (Tylenol 650 Mg Supp) 650 mg [place] Q6 PRN PRN Reason: Fever >100.4 F Enoxaparin Sodium (Lovenox) 40 mg SC HS [facility] PRN Reason: Protocol Last Admin: 10/17/16 22:10 Dose: 40 mg Famotidine (Pepcid) 20 mg IVP DAILY [facility] Hydroxychloroquine Sulfate (Plaquenil) 200 mg PO BID [facility] Last Admin: 10/17/16 17:17 Dose: 200 mg Methylprednisolone (Medrol) 4 mg PO DAILY [facility] Last Admin: 10/17/16 09:34 Dose: 4 mg Morphine Sulfate (Morphine) 2 mg IVP Q4 PRN PRN Reason: Pain, moderate (4-7) Last Admin: 10/17/16 17:21 Dose: 2 mg Ondansetron HCl (Zofran Inj) 4 mg IVP Q6 PRN PRN Reason: Nausea/Vomiting Last Admin: 10/16/16 09:07 Dose: 4 mg Sodium Phosphate (Fleet Enema) 135 ml [place] ONCE PRN PRN Reason: Constipation - Labs Labs: 10/18/16 06:45 - Constitutional Appears: Well, No Acute Distress - Head Exam Head Exam: ATRAUMATIC, NORMAL INSPECTION, NORMOCEPHALIC - Eye Exam Eye Exam: EOMI, Normal appearance - ENT Exam ENT Exam: Mucous Membranes Moist - Respiratory Exam Respiratory Exam: NORMAL BREATHING PATTERN - GI/Abdominal Exam GI & Abdominal Exam: Soft. absent: Distended, Firm, Guarding, Rigid, Tenderness , Rebound - Extremities Exam Extremities Exam: Normal Inspection. absent: Calf Tenderness - Neurological Exam Neurological Exam: Alert, Awake, Oriented x3 - Psychiatric Exam Psychiatric exam: Normal Affect, Normal Mood - Skin Skin Exam: Dry, Intact, Normal Color, Warm Assessment and Plan - Assessment and Plan (Free Text) Assessment: 36yo F with severe constipation and possible colonic stricture. - Abd pain and distention improved secondary to multiple large BMs - No plans for any acute surgical intervention at this time - Continue Bowel regimen - IVF - f/u GI recs - Encourage OOB, Encourage Ambulation - We will continue to follow patient's clinical course further recs as per Dr. Zohreh Benites PGY1 <Noel Bruner - Last Filed: 10/18/16 11:54> Subjective - Date & Time of Evaluation Time of Evaluation: 11:30 - Subjective Subjective: Patient was seen and examined at the bedside. Agree with resident's note above Objective - Vital Signs/Intake and Output Vital Signs (last 24 hours): Temp Pulse Resp BP Pulse Ox 98.5 F 77 20 105/70 97 10/18/16 08:58 10/18/16 08:58 10/18/16 08:58 10/18/16 08:58 10/18/16 08:58 - Medications Medications: Current Medications Acetaminophen (Tylenol 650 Mg Supp) 650 mg [place] Q6 PRN PRN Reason: Fever >100.4 F Enoxaparin Sodium (Lovenox) 40 mg SC HS [facility] PRN Reason: Protocol Last Admin: 10/17/16 22:10 Dose: 40 mg Famotidine (Pepcid) 20 mg IVP DAILY [facility] Last Admin: 10/18/16 08:42 Dose: 20 mg Hydroxychloroquine Sulfate (Plaquenil) 200 mg PO BID [facility] Last Admin: 10/18/16 08:38 Dose: 200 mg Methylprednisolone (Medrol) 4 mg PO DAILY [facility] Last Admin: 10/18/16 08:38 Dose: 4 mg Morphine Sulfate (Morphine) 2 mg IVP Q4 PRN PRN Reason: Pain, moderate (4-7) Last Admin: 10/17/16 17:21 Dose: 2 mg Ondansetron HCl (Zofran Inj) 4 mg IVP Q6 PRN PRN Reason: Nausea/Vomiting Last Admin: 10/16/16 09:07 Dose: 4 mg Sodium Phosphate (Fleet Enema) 135 ml [place] ONCE PRN PRN Reason: Constipation - Labs Labs: 10/18/16 06:45 10/18/16 06:45
[2016-10-18 08:10] LABS: ALBUMIN 3.2 g/dL (3.5-5.0); ALT/SGPT 20 U/L (9-52); AST/SGOT 33 U/L (14-36); BLOOD UREA NITROGEN 5 mg/dl (7-17); CALCIUM 8.8 mg/dL (8.4-10.2); GFR AFRICAN-AMERICAN > 60; GFR NON-AFRICAN AMERICAN > 60
[2016-10-18 08:18] LABS: ALB/GLOB RATIO 0.8 (1.0-2.1)
[2016-10-18 08:58] VITALS: BP 105/70; PULSE 77; RESP 20; TEMP 98.5; O2SAT 97
--- NOTE | 2016-10-18 10:06 | CP.PCM.PN ---
Subjective - Date & Time of Evaluation Date of Evaluation: 10/18/16 Time of Evaluation: 10:04 - Subjective Subjective: Patient seen and examined. Feeling much better since yesterday, no abdominal distention, discomfort, pain or bloating. Had BM yesterday 5-6 times, first one hard, softened following. last BM was at 4AM today, still NPO. denies N/V. Objective - Vital Signs/Intake and Output Vital Signs (last 24 hours): Temp Pulse Resp BP Pulse Ox 98.5 F 77 20 105/70 97 10/18/16 08:58 10/18/16 08:58 10/18/16 08:58 10/18/16 08:58 10/18/16 08:58 - Medications Medications: Current Medications Acetaminophen (Tylenol 650 Mg Supp) 650 mg [place] Q6 PRN PRN Reason: Fever >100.4 F Enoxaparin Sodium (Lovenox) 40 mg SC HS [facility] PRN Reason: Protocol Last Admin: 10/17/16 22:10 Dose: 40 mg Famotidine (Pepcid) 20 mg IVP DAILY [facility] Last Admin: 10/18/16 08:42 Dose: 20 mg Hydroxychloroquine Sulfate (Plaquenil) 200 mg PO BID [facility] Last Admin: 10/18/16 08:38 Dose: 200 mg Methylprednisolone (Medrol) 4 mg PO DAILY [facility] Last Admin: 10/18/16 08:38 Dose: 4 mg Morphine Sulfate (Morphine) 2 mg IVP Q4 PRN PRN Reason: Pain, moderate (4-7) Last Admin: 10/17/16 17:21 Dose: 2 mg Ondansetron HCl (Zofran Inj) 4 mg IVP Q6 PRN PRN Reason: Nausea/Vomiting Last Admin: 10/16/16 09:07 Dose: 4 mg Sodium Phosphate (Fleet Enema) 135 ml [place] ONCE PRN PRN Reason: Constipation - Labs Labs: 10/18/16 06:45 10/18/16 06:45
--- NOTE | 2016-10-18 16:09 | CP.PCM.DIS ---
Provider - Provider Date of Admission: 10/16/16 04:46 Attending physician: Carlita Villegas MD Consults: GI, Dr. Garibay Surgery, Dr. Bruner Time Spent in preparation of Discharge (in minutes): 30 Diagnosis - Discharge Diagnosis (1) Abdominal pain Status: Acute (2) Colonic stricture Status: Acute Comment: suspected (3) Constipation Status: Acute Comment: acute on chronic constipations (4) Systemic lupus erythematosus Status: Chronic Hospital Course - Lab Results Lab Results: Most Recent Lab Values WBC 9.5 K/uL (4.8-10.8) 10/18/16 06:45 RBC 3.26 Mil/uL (3.80-5.20) L 10/18/16 06:45 Hgb 9.8 g/dL (12.0-16.0) L 10/18/16 06:45 Hct 29.1 % (34.0-47.0) L 10/18/16 06:45 MCV 89.4 fl (81.0-99.0) 10/18/16 06:45 MCH 30.0 pg (27.0-31.0) 10/18/16 06:45 MCHC 33.5 g/dL (33.0-37.0) 10/18/16 06:45 RDW 13.7 % (11.5-14.5) 10/18/16 06:45 Plt Count 276 K/uL (130-400) 10/18/16 06:45 MPV 9.4 fl (7.2-11.7) 10/18/16 06:45 Neut % (Auto) 60.1 % (50.0-75.0) 10/18/16 06:45 Lymph % (Auto) 30.5 % (20.0-40.0) 10/18/16 06:45 [place] % (Auto) 8.3 % (0.0-10.0) 10/18/16 06:45 Eos % (Auto) 0.8 % (0.0-4.0) 10/18/16 06:45 Baso % (Auto) 0.3 % (0.0-2.0) 10/18/16 06:45 Neut # 5.7 K/uL (1.8-7.0) 10/18/16 06:45 Lymph # 2.9 K/uL (1.0-4.3) 10/18/16 06:45 [place] # 0.8 K/uL (0.0-0.8) 10/18/16 06:45 Eos # 0.1 K/uL (0.0-0.7) 10/18/16 06:45 Baso # 0.0 K/uL (0.0-0.2) 10/18/16 06:45 Sodium 143 mmol/l (132-148) 10/18/16 06:45 Potassium 4.1 MMOL/L (3.6-5.0) 10/18/16 06:45 Chloride 110 mmol/L (98-107) H 10/18/16 06:45 Carbon Dioxide 25 mmol/L (22-30) 10/18/16 06:45 Anion Gap 12 (10-20) 10/18/16 06:45 BUN 5 mg/dl (7-17) L 10/18/16 06:45 Creatinine 0.5 mg/dL (0.7-1.2) L 10/18/16 06:45 Est GFR ( Amer) > 60 10/18/16 06:45 Est GFR (Non-Af Amer) > 60 10/18/16 06:45 Random Glucose 96 mg/dL (65-105) 10/18/16 06:45 Calcium 8.8 mg/dL (8.4-10.2) 10/18/16 06:45 Total Bilirubin 0.3 mg/dl (0.2-1.3) 10/18/16 06:45 AST 33 U/L (14-36) 10/18/16 06:45 ALT 20 U/L (9-52) 10/18/16 06:45 Alkaline Phosphatase 61 U/L (38-126) 10/18/16 06:45 Total Protein 7.4 G/DL (6.3-8.2) 10/18/16 06:45 Albumin 3.2 g/dL (3.5-5.0) L D 10/18/16 06:45 Globulin 4.2 gm/dL (2.2-3.9) H 10/18/16 06:45 Albumin/Globulin Ratio 0.8 (1.0-2.1) L 10/18/16 06:45 Urine Color Marlene (YELLOW) 10/16/16 00:21 Urine Clarity Slighty-cloudy (Clear) 10/16/16 00:21 Urine pH 5.0 (5.0-8.0) 10/16/16 00:21 Ur Specific [place] 1.032 (1.003-1.030) H 10/16/16 00:21 Urine Protein 30 mg/dL (NEGATIVE) 10/16/16 00:21 Urine Glucose (UA) Neg mg/dL (Normal) 10/16/16 00: Urine Ketones 20 mg/dL (NEGATIVE) 10/16/16 00:21 Urine Blood Small (NEGATIVE) 10/16/16 00: Urine Nitrate Negative (NEGATIVE) 10/16/16 00: Urine Bilirubin Small (NEGATIVE) 10/16/16 00: Urine Urobilinogen 4.0 mg/dL (0.2-1.0) H 10/16/16 00:21 Ur Leukocyte Esterase Neg Carey/uL (Negative) 10/16/16 00: Urine RBC (Auto) 3 /hpf (0-3) 10/16/16 00: Urine Microscopic WBC 2 /hpf (0-5) 10/16/16 00:21 Ur Squamous Epith Cells 5 /hpf (0-5) 10/16/16 00:21 Urine Bacteria Rare (<OCC) 10/16/16 00:21 - Hospital Course Hospital Course: 35 yo F w PMHx of Lupus and chronic constipation presented to ED with over 1 week history of constipation associated with new nausea, vomiting, and significant abdominal pain. A CT abd showed suspicion for a focal stricture in the large intestine. GI and Surgery both consulted. Surgery, Dr. Bruner, recommended no acute surgical intervention and GI, Dr. Garibay, recommended fleet enemas. Patient significantly improved after the enemas and had 5-6 BMs. GI also recommended barium enema and colonoscopy for further eval but patient decided to leave [facility] despite extensive explanation of risks. Patient was advised and understood risks associated with her condition. Patient also understands need for f/u and further studies with GI and PMD. - Date & Time of H&P Date of H&P: 10/16/16 Time of H&P: 05:39 Discharge Exam - Head Exam Head Exam: ATRAUMATIC, NORMAL INSPECTION, NORMOCEPHALIC - Eye Exam Eye Exam: EOMI, Normal appearance - Neck Exam Neck exam: Full Rom - Respiratory Exam Respiratory Exam: absent: Accessory Muscle Use, Chest Wall Tenderness, Decreased Breath Sounds, Wheezes - Cardiovascular Exam Cardiovascular Exam: REGULAR RHYTHM, RRR, +S1, +S2. absent: Bradycardia, Tachycardia, Irregular Rhythm, JVD, +S4, Systolic Murmur - GI/Abdominal Exam GI & Abdominal Exam: Distended (mildly distended), Normal Bowel Sounds, Soft. absent: Bruit, Diminished Bowel Sounds, Guarding, Hernia, Rebound, Rigid, Tenderness - Extremities Exam Extremities exam: full ROM - Back Exam Back exam: absent: CVA tenderness (L), CVA tenderness (R) - Neurological Exam Neurological exam: Alert, CN II-XII Intact, Oriented x3 - Psychiatric Exam Psychiatric exam: Normal Affect - Skin Skin Exam: Normal Color Discharge Plan - Follow Up Plan Condition: STABLE Disposition: AGAINST MEDICAL ADVICE Instructions: Colon Stricture (DC) Additional Instructions: Signed AMA; follow-up in Clinic instructed
== END 2016-10-18 13:07 | disposition left against medical advice (07) | DRG 182 ==
LOC: H.ER 22:54 → H.EROBSV 23:15 → OBSVTOIN 10-16 04:46 → H.MEDSURG1 10-16 04:46
PROVIDERS: ADMIT Family Medicine Geriatric Medicine; ATTEND Family Medicine Geriatric Medicine
DX: K59.03 Drug induced constipation (principal); K56.69 Other intestinal obstruction; M32.9 Systemic lupus erythematosus, unspecified; K75.4 Autoimmune hepatitis; N13.30 Unspecified hydronephrosis; T38.0X5A Adverse effect of glucocorticoids and synthetic analogues, initial encounter

== ENCOUNTER 2016-11-09 07:11 | Day surgery (SDC) | payer SELFPAY ==
[2016-11-09] MEDS ORDERED: Lactated Ringer's 500 ML IV ONE (07:29)
[2016-11-09 07:31] VITALS: BMI 30.5
[2016-11-09] MEDS ORDERED: Propofol 10 mg/ml Inj (20 ML) ONE (07:58)
[2016-11-09 09:01] VITALS: TEMP 97.6
[2016-11-09 09:21] VITALS: BP 106/56; PULSE 78; RESP 14; O2SAT 98
== END 2016-11-09 09:22 | disposition home or self-care (01) ==
LOC: H.ENDO 07:11
PROVIDERS: ATTEND Internal Medicine Gastroenterology
DX: K31.84 Gastroparesis (principal); K29.50 Unspecified chronic gastritis without bleeding; K29.80 Duodenitis without bleeding; K44.9 Diaphragmatic hernia without obstruction or gangrene; K64.8 Other hemorrhoids; R93.3 Abnormal findings on diagnostic imaging of other parts of digestive tract; R10.84 Generalized abdominal pain; R14.0 Abdominal distension (gaseous)

== ENCOUNTER 2017-01-09 23:34 | Emergency (ER) | payer SELFPAY ==
[2017-01-09 23:34] VITALS: BMI 30.5
[2017-01-10 00:06] VITALS: BP 117/72; PULSE 81; RESP 16; TEMP 98.8; O2SAT 98
[2017-01-10] MEDS ORDERED: Sodium Chloride 0.9% 1,000 ML IV STA (00:24)
--- NOTE | 2017-01-10 00:51 | ED PDOC ---
HPI: Headache Chief Complaint (Provider): Headache History Per: Patient History/Exam Limitations: no limitations Onset/Duration Of Symptoms: Days (3) Current Symptoms Are (Timing): Still Present Severity: Moderate Pain Scale Rating Of: 8 Quality: Other (Pulsating) Preceeding Symptoms: denies: Visual Disturbances, Known Migraine Symptoms Associated Symptoms: Photophobia. denies: Blurred Vision, Nausea, Vomiting, Extremity Weakness Additional Complaint(s): 36 y/o F with PMH including SLE presents with a 3 day history of headache. Patient states headache is left sided, pulsing in quality and variable intensity ranging from 5-8/10. Headache is associated with mild photophobia but with no preceding aura, nausea, vomiting, dizziness, visual disturbances, balance disturbances or focal weakness. Headache has not improved with 400mg ibuprofen or OTC tylenol. She denies feeling of the "worst headache" of her life. <Veronica Collins - Last Filed: 01/10/17 03:07> <Figueroa Myers - Last Filed: 01/10/17 03:34> Time Seen by Provider: 01/09/17 23:48 Chief Complaint (Nursing): Headache Supervising Attending Note - Supervising Attending Note The Documented history was done by the: Physician Passenger Car Inspector, Attending Physician The documented physical exam was done by the: Physician Passenger Car Inspector, Attending Physician The documented procedures were done by the: Physician Passenger Car Inspector, Attending Physician - Attestation: I have personally seen and examined this patient.: Yes I have fully participated in the care of the patient.: Yes I have reviewed all pertinent clinical information: Yes <Figueroa Myers - Last Filed: 01/10/17 03:34> Past Medical History Vital Signs: Last Vital Signs Temp 98.8 F 01/10/17 00:04 Pulse 81 01/10/17 00:04 Resp 16 01/10/17 00:04 BP 117/72 01/10/17 00:04 Pulse Ox 98 01/10/17 00:04 - Medical History PMH: Anemia Denies: Chronic Kidney Disease Other PMH: SLE - Family History Family History: States: Unknown Family Hx - Social History Current smoker - smoking cessation education provided: No Alcohol: Occasional Drugs: Denies <Veronica Collins - Last Filed: 01/10/17 03:07> Vital Signs: Last Vital Signs Temp 98.8 F 01/10/17 00:04 Pulse 81 01/10/17 00:04 Resp 16 01/10/17 00:04 BP 117/72 01/10/17 00:04 Pulse Ox 98 01/10/17 03:07 <LouisFigueroa Mazin - Last Filed: 01/10/17 03:34> - Home Medications Home Medications: Ambulatory Orders Medication Instructions Recorded Hydroxychloroquine Sulfate 200 mg PO BID 10/16/16 [Plaquenil] methylPREDNISolone [Medrol] 4 mg PO DAILY 10/16/16 Acetaminophen/Butalbital/Caf 1 tab PO Q6 PRN #15 tab 01/10/17 [Fioricet] - Allergies Allergies/Adverse Reactions: Allergies Allergy/AdvReac Type Severity Reaction Status Date / Time No Known Allergies Allergy Verified 11/09/16 07:31 Review of Systems ROS Statement: Except As Marked, All Systems Reviewed And Found Negative <Veronica Collins - Last Filed: 01/10/17 03:07> Physical Exam - Reviewed Vital Signs Reviewed: Yes - Physical Exam Appears: Positive for: No Acute Distress, Uncomfortable Head Exam: Positive for: ATRAUMATIC, NORMAL INSPECTION, NORMOCEPHALIC Eye Exam: Positive for: Normal appearance, EOMI, PERRL. Negative for: Nystagmus Neck: Positive for: Normal, Painless ROM Cardiovascular/Chest: Positive for: Regular Rate, Rhythm. Negative for: Edema, Murmur Respiratory: Positive for: Normal Breath Sounds. Negative for: Crackles, Stridor, Wheezing, Respiratory Distress Pulses-Radial (L): 2+ Pulses-Radial (R): 2+ Gastrointestinal/Abdominal: Positive for: Normal Exam, Bowel Sounds, Soft. 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 Negative for: Motor/Sensory Deficits <Veronica Collins - Last Filed: 01/10/17 03:07> - ECG O2 Sat by Pulse Oximetry: 98 - Progress ED Course And Treament: Patient states headache improved slightly with toradol + reglan but headache persists. She reports similar type of headache which occurs weekly but that this time headache has lasted longer and is somewhat stronger than usual. Will give trial of fioricet. Condition: Re-examined, Improved <Veronica Collins - Last Filed: 01/10/17 03:07> Medical Decision Making Medical Decision Making: FINDINGS: Brain: No intracranial hemorrhage. No mass. No definite edema. Ventricles: No hydrocephalus. Bones/joints: No acute fracture. 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 Soft tissues: Unremarkable. Sinuses: No acute sinusitis. Mastoid air cells: No mastoid effusion. Orbits: Unremarkable as visualized. IMPRESSION: 1. No acute intracranial abnormality. 2. Incidental/non-acute findings are described above. <Figueroa Myers - Last Filed: 01/10/17 03:34> Disposition - Patient ED Disposition Is Patient to be Admitted: No Counseled Patient/Family Regarding: Studies Performed, Need For Followup - Disposition Disposition: Routine/Home Disposition Time: 03:07 <Veronica Collins - Last Filed: 01/10/17 03:07> <Figueroa Myers - Last Filed: 01/10/17 03:34> - Clinical Impression Clinical Impression: Acute headache - Disposition Referrals: [facility] [place] [Outside] Condition: GOOD Additional Instructions: Follow up with your PCP at [facility]. Prescriptions: Acetaminophen/Butalbital/Caf [Fioricet] 1 tab PO Q6 PRN #15 tab PRN Reason: Headache Instructions: Cluster Headache (ED), Migraine Headache (ED), Acute Headache (ED ) Forms: [employer] (Chilean) Print Language: THAI
--- NOTE | 2017-01-10 01:33 | CT ---
EXAM: CT Head Without Intravenous Contrast CLINICAL HISTORY: 36 years old, female; Pain; Headache TECHNIQUE: Axial computed tomography images of the head/brain without intravenous contrast. All CT scans at this facility use one or more dose reduction techniques, viz.: automated exposure control; ma/kV adjustment per patient size (including targeted exams where dose is matched to indication; i.e. head); or iterative reconstruction technique. Coronal and sagittal reformatted images were created and reviewed. COMPARISON: No relevant prior studies available. FINDINGS: Brain: No intracranial hemorrhage. No mass. No definite edema. Ventricles: No hydrocephalus. Bones/joints: No acute fracture. 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 Soft tissues: Unremarkable. Sinuses: No acute sinusitis. Mastoid air cells: No mastoid effusion. Orbits: Unremarkable as visualized. IMPRESSION: 1. No acute intracranial abnormality. 2. Incidental/non-acute findings are described above.
[2017-01-10] MEDS ORDERED: Apap-Butalbital-Caffeine 325-50-40mg Tab PO STA (02:47)
== END 2017-01-10 03:58 | disposition home or self-care (01) ==
LOC: H.ER 23:34
DX: G43.909 Migraine, unspecified, not intractable, without status migrainosus (principal)
CPT/HCPCS: 70450; 81025; 96374; 99284; J1885; J2765; J7040

== ENCOUNTER 2017-11-21 13:36 | Emergency (ER) | payer SELFPAY ==
[2017-11-21 13:36] VITALS: BMI 30.5
[2017-11-21 13:43] VITALS: RESP 18; TEMP 98
--- NOTE | 2017-11-21 14:38 | ED PDOC ---
HPI: Headache Time Seen by Provider: 11/21/17 14:07 Chief Complaint (Nursing): Headache Chief Complaint (Provider): Headache History Per: Patient History/Exam Limitations: no limitations Onset/Duration Of Symptoms: Days (x10) Current Symptoms Are (Timing): Still Present Additional Complaint(s): 37 y/o female with a PMHx of Lupus presents to the ED for evaluation of a right sided intermittent headache, onset ten days ago. Patient reports headache worsened last night around 8 PM and is currently rated at an 8/10. Patient states that when the headache is very severe it gets associated with dizziness. Patient reports of taking Advil for symptom relief but has not taken any today. Patient also reports a history of similar headache but states they have never lasted this long. Otherwise: (-) fever, (-) chills, (-) neck pain or stiffness, (-) ear pain, (-) throat pain, (-) weakness, (-) numbness, (-) vision changes, ( -) abdominal pain, (-) chest pain, (-) shortness of breath. PMD: Alejandro Grant LNMP: 11/13/2017 Past Medical History Reviewed: Historical Data, Nursing Documentation, Vital Signs Vital Signs: Last Vital Signs Temp 98 F 11/21/17 13:40 Pulse 70 11/21/17 13:40 Resp 18 11/21/17 13:40 BP 113/69 11/21/17 13:40 Pulse Ox 99 11/21/17 13:40 - Medical History PMH: Anemia Denies: Chronic Kidney Disease Other PMH: Lupus - Surgical History Surgical History: No Surg Hx - Family History Family History: States: Unknown Family Hx - Social History Current smoker - smoking cessation education provided: No Alcohol: None Drugs: Denies - Home Medications Home Medications: Ambulatory Orders Medication Instructions Recorded Hydroxychloroquine Sulfate 200 mg PO BID 10/16/16 [Plaquenil] methylPREDNISolone [Medrol] 4 mg PO DAILY 10/16/16 Acetaminophen/Butalbital/Caf 1 tab PO Q6 PRN #15 tab 01/10/17 [Fioricet] Naproxen 500 mg PO BID PRN #20 tab 11/21/17 - Allergies Allergies/Adverse Reactions: Allergies Allergy/AdvReac Type Severity Reaction Status Date / Time No Known Allergies Allergy Verified 08/01/17 07:31 Review of Systems Constitutional: Negative for: Fever, Chills Eyes: Negative for: Vision Change ENT: Negative for: Ear Pain, Throat Pain Cardiovascular: Negative for: Chest Pain Respiratory: Negative for: Shortness of Breath Gastrointestinal: Negative for: Abdominal Pain Musculoskeletal: Negative for: Neck Pain Neurological: Positive for: Headache (right sided), Dizziness (when headache is severe). Negative for: Weakness, Numbness Physical Exam - Reviewed Nursing Documentation Reviewed: Yes Vital Signs Reviewed: Yes - Physical Exam Comments: GENERAL APPEARANCE: Patient is awake, alert, oriented x 3, in no acute distress. SKIN: Warm, dry; (-) cyanosis; (-) rash. HEAD: (-) scalp swelling or tenderness, (-) temporal artery tenderness. EYES: (-) conjunctival pallor, (-) scleral icterus. ENMT: (-) sinus tenderness; mucous membranes are moist. NECK: (-) tenderness, (-) stiffness, (-) meningismus, (-) lymphadenopathy. CHEST AND RESPIRATORY: (-) rales, (-) rhonchi, (-) wheezes; breath sounds equal bilaterally. HEART AND CARDIOVASCULAR: (-) irregularity; (-) murmur, (-) gallop. ABDOMEN AND GI: Soft; (-) tenderness. EXTREMITIES: (-) deformity. NEURO AND PSYCH: Mental status as above. 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 Strength and DTRs symmetric. Babinski normal bilaterally. - ECG O2 Sat by Pulse Oximetry: 99 (RA) Pulse Ox Interpretation: Normal Medical Decision Making Medical Decision Making: Time: 1434 Impression: Headache Plan: -- CT Head w/o Contrast -- ED Test -- Tylenol 650 mg PO -- Glucose, Blood, POC Time: 1458 -- UPreg result: negative. Time: 1513 Accucheck = [address] reviewed, radiology report follows PROCEDURE: CT HEAD WITHOUT CONTRAST. HISTORY: Headache COMPARISON: 01/10/2017. TECHNIQUE: Axial computed tomography images were obtained through the head/brain without intravenous contrast. Radiation dose: Total exam DLP = 699.73 mGy-cm. This CT exam was performed using one or more of the following dose reduction techniques: Automated exposure control, adjustment of the mA and/or kV according to patient size, and/or use of iterative reconstruction technique. FINDINGS: HEMORRHAGE: No intracranial hemorrhage. BRAIN: Lee-white matter differentiation is preserved. There is no mass, mass effect or abnormal extra-axial fluid collection. There is no territorial infarction. The midline sagittal structures are normal. VENTRICLES: The ventricles are normal in size, shape and configuration. CALVARIUM: The skull base and calvarium are normal. PARANASAL SINUSES: Predominantly clear. MASTOID AIR CELLS: Predominantly clear. OTHER FINDINGS: None. IMPRESSION: No acute intracranial abnormality. Patient reports slight improvement of headache at this time. Toradol 30mg IM ordered. 1654 On re-evaluation, patient reports resolution of symptoms. On exam, patient remains AAOx3, in no acute distress. On exam, neck is supple, lungs CTA, cardiac RRR, neuro exam shows no focal findings. VSS, stable for discharge. Diagnostic results d/w the patient in great detail. Dx of headache d/w the patient. Based on history, exam and diagnostic results plan will be for discharge and outpatient follow up. Advised to follow up with primary care physician in 1-2 days without fail. Advised to take medication as prescribed. Return to the emergency room at any time for any new or worsening symptoms. Patient states she fully agrees with and understands discharge instructions. States that she agrees with the plan and disposition. Verbalized and repeated discharge instructions and plan. I have given the patient opportunity to ask any additional questions. Scribe Attestation: Documented by Autumn Adam, acting as a scribe for Kavita Drake PA-C. Provider Scribe Attestation: All medical record entries made by the Scribe were at my direction and personally dictated by me. I have reviewed the chart and agree that the record accurately reflects my personal performance of the history, physical exam, medical decision making, and the department course for this patient. I have also personally directed, reviewed, and agree with the discharge instructions and disposition. Disposition - Clinical Impression Clinical Impression: Headache - Patient ED Disposition Is Patient to be Admitted: No Counseled Patient/Family Regarding: Studies Performed, Diagnosis, Need For Followup, Rx Given - Disposition Referrals: Alejandro Grant MD [Family Provider] - Disposition: Routine/Home Disposition Time: 16:54 Condition: STABLE Additional Instructions: The emergency medical care you received today was directed at your acute symptoms. If you were prescribed any medication, please fill it and take as directed. It may take several days for your symptoms to resolve. Return to the Emergency Department if your symptoms worsen, do not improve, or if you have any other problems. Please contact your doctor in 2 days for re-evaluation and follow up / or call one of the physicians/clinics you have been referred to that are listed on the Patient Visit Information form that is included in your discharge packet. Bring any paperwork you were given at discharge with you along with any medications you are taking to your follow up visit. Our treatment cannot replace ongoing medical care by a primary care provider (PCP) outside of the emergency department. Prescriptions: Naproxen 500 mg PO BID PRN #20 tab PRN Reason: Headache Instructions: Headache, Adult, Migraine Headache (DC) Forms: [employer] (Chinese) Print Language: ARMENIAN - POA Present On Arrival: None Results - Lab Results Lab Results: 11/21/17 15:12 POC Glucose (mg/dL) 82
--- NOTE | 2017-11-21 15:41 | CT ---
Date of service: 11/21/2017 PROCEDURE: CT HEAD WITHOUT CONTRAST. HISTORY: Headache COMPARISON: 01/10/2017. TECHNIQUE: Axial computed tomography images were obtained through the head/brain without intravenous contrast. Radiation dose: Total exam DLP = 699.73 mGy-cm. This CT exam was performed using one or more of the following dose reduction techniques: Automated exposure control, adjustment of the mA and/or kV according to patient size, and/or use of iterative reconstruction technique. FINDINGS: HEMORRHAGE: No intracranial hemorrhage. BRAIN: Lee-white matter differentiation is preserved. There is no mass, mass effect or abnormal extra-axial fluid collection. There is no territorial infarction. The midline sagittal structures are normal. VENTRICLES: The ventricles are normal in size, shape and configuration. CALVARIUM: The skull base and calvarium are normal. PARANASAL SINUSES: Predominantly clear. MASTOID AIR CELLS: Predominantly clear. OTHER FINDINGS: None. IMPRESSION: No acute intracranial abnormality.
[2017-11-21 17:04] VITALS: BP 122/89; PULSE 119; O2SAT 100
== END 2017-11-21 17:03 | disposition home or self-care (01) ==
LOC: H.ER 13:36
DX: R51 Headache (principal); M32.9 Systemic lupus erythematosus, unspecified
CPT/HCPCS: 70450; 81025; 82948; 96372; 99285; J1885